=== PATIENT | female | born 1930 | race Caucasian/White ===

== ENCOUNTER 2017-04-23 16:39 | Inpatient (IN) | payer OTHER ==
[~2017-04-23] VITALS: Ht 147.3 cm; Wt 54.6 kg
[2017-04-23 19:56] LABS: CALCIUM 8.1 mg/dL (8.5-10.1); CARBON DIOXIDE 23.1 mmol/L (21-32); CHLORIDE SERUM 104 mmol/L (98-107); CREATININE SERUM 1.1 mg/dL (0.6-1.0); GLUCOSE SERUM 110 mg/dL (74-106); SODIUM SERUM 138 mmol/L (136-145)
[2017-04-23 19:57] LABS: RED CELL DISTRIBUTION WIDTH 13.7 % (11.5-14.5)
[2017-04-23 20:01] LABS: ALKALINE PHOSPHATASE 83 U/L (46-116); ALT/SGPT 41 U/L (14-59); AST/SGOT 59 U/L (15-37); BILIRUBIN TOTAL 0.4 mg/dL (0.20-1.00); TOTAL PROTEIN, SERUM 6.6 g/dL (6.4-8.2)
[2017-04-23 20:02] LABS: BASOPHIL % 0 % (0-2); PLATELET COUNT 112 x10^3mcL (130-400)
[2017-04-23 21:23] LABS: MAGNESIUM 2.1 mg/dL (1.8-2.4); PHOSPHOROUS 2.5 mg/dL (2.5-4.9)
[2017-04-23 21:24] LABS: T3 TOTAL 0.56 ng/mL
[2017-04-23 21:35] LABS: FREE T4 0.98 ng/dL (0.76-1.46); FREE THYROXINE INDEX 2.1 ug/dL (1.4-4.5); T4(THYROXINE) 6.4 ug/dL (4.7-13.3)
[2017-04-23 22:21] VITALS: BP 142/55
[2017-04-23 22:26] VITALS: BP 142/55
[2017-04-24 05:34] VITALS: BP 123/51
[2017-04-24 07:20] LABS: BASOPHIL % 0.4 % (0-2); RED CELL DISTRIBUTION WIDTH 13.6 % (11.5-14.5)
[2017-04-24 07:25] LABS: PLATELET COUNT 105 x10^3mcL (130-400)
[2017-04-24 08:00] LABS: CARBON DIOXIDE 22.2 mmol/L (21-32); CHLORIDE SERUM 106 mmol/L (98-107); GLUCOSE SERUM 90 mg/dL (74-106); MAGNESIUM 2.2 mg/dL (1.8-2.4); PHOSPHOROUS 3.1 mg/dL (2.5-4.9); POTASSIUM SERUM 3.9 mmol/L (3.5-5.1); SODIUM SERUM 139 mmol/L (136-145)
[2017-04-24 08:48] VITALS: BP 150/64
[2017-04-24 10:58] LABS: UA SPECIFIC GRAVITY >=1.030 (1.005-1.035); microscopic required? YES; urine erythrocyte NEGATIVE (NEGATIVE)
[2017-04-24 11:18] LABS: AMPHETAMINE QUAL UR NONE DETECTED (NEG <=1000)
[2017-04-24 13:02] VITALS: BP 111/57
[2017-04-24 17:34] VITALS: BP 140/61
[2017-04-24 21:00] VITALS: BP 142/47
[2017-04-24 21:23] VITALS: BP 142/47
[2017-04-25 06:48] VITALS: BP 136/52
[2017-04-25 08:29] LABS: CALCIUM 7.8 mg/dL (8.5-10.1); CARBON DIOXIDE 22.6 mmol/L (21-32); CHLORIDE SERUM 107 mmol/L (98-107); CREATININE SERUM 0.8 mg/dL (0.6-1.0); GLUCOSE SERUM 87 mg/dL (74-106); POTASSIUM SERUM 3.8 mmol/L (3.5-5.1); SODIUM SERUM 137 mmol/L (136-145)
[2017-04-25 09:31] VITALS: BP 141/49
[2017-04-25 09:58] LABS: BASOPHIL % 0.5 % (0-2); RED CELL DISTRIBUTION WIDTH 12.9 % (11.5-14.5)
[2017-04-25 10:01] LABS: PLATELET COUNT 90 x10^3mcL (130-400)
[2017-04-25 12:20] VITALS: BP 121/41
[2017-04-25] MEDS ORDERED: GOOD SENSE ASPI81 M3 PO (12:30)
[2017-04-25] MEDS ORDERED: LIPI10 PO (12:31)
[2017-04-25] MEDS ORDERED: KEFLEX500 M1 PO (12:31)
[2017-04-25] MEDS ORDERED: LAC PO (12:32)
[2017-04-25 15:18] VITALS: Ht 147.3 cm; Wt 54.6 kg
[2017-04-25 16:48] VITALS: BP 137/54
[2017-04-25 16:52] VITALS: BP 121/41
[2017-04-25] MEDS ORDERED: MEMANTINE HCL10 MG PO (17:17)
[2017-04-25] MEDS ORDERED: QUETIAPINE FUMA25 M1 PO (17:19)
[2017-04-25] MEDS ORDERED: ARI10 PO (17:19)
[2017-04-25 21:17] VITALS: BP 146/59
== END 2017-04-25 21:24 | disposition home or self-care (01) | DRG 193 ==
LOC: ED 16:39 → DU 20:37
PROVIDERS: Emergency Medicine; Student in an Organized Health Care Education/Training Program
DX: J10.1 Influenza due to other identified influenza virus with other respiratory manifestations (principal); G93.41 Metabolic encephalopathy; J96.01 Acute respiratory failure with hypoxia; N17.0 Acute kidney failure with tubular necrosis; N39.0 Urinary tract infection, site not specified; G30.9 Alzheimer's disease, unspecified; F02.80 Dementia in other diseases classified elsewhere, unspecified severity, without behavioral disturbance, psychotic disturbance, mood disturbance, and anxiety; E78.5 Hyperlipidemia, unspecified; D69.6 Thrombocytopenia, unspecified; E03.9 Hypothyroidism, unspecified; M47.9 Spondylosis, unspecified; Z68.22 Body mass index [BMI] 22.0-22.9, adult
CPT/HCPCS: 36600; 83880; 84439; 87804; 94150; J0696; J1885; J7030; J7040; J7620; Q0092; Q9967